=== PATIENT | male | born 1995 | race Caucasian/White ===

== ENCOUNTER 2017-02-04 13:47 | Emergency (ER) | payer MEDICAID ==
[2017-02-04 14:02] VITALS: TEMP 97.9
[2017-02-04] MEDS ORDERED: IBUPROFEN 800 MG TAB PO ONE (15:27)
--- NOTE | 2017-02-04 15:31 | UCPHY ---
H & P Time Seen by Provider: 02/04/17 14:59 Patient Type: New HPI/ROS: HPI Nasal injury. 21-year-old male by private vehicle. This patient has a history of a nasal fracture from 1 year ago. He never had a proper reduction and repair to this fracture and has a nasal deformity secondary to this. He reports that he was snowboarding yesterday. He reports that he fell and struck his nose hard on the ground. He complains of isolated nasal pain on the left side of the nasal bridge. He is concerned that he broke his nose again. He denies loss of consciousness. No neck pain. No loss of sensation or weakness in his extremities. No extremity pain. No other complaints. ROS: Constitutional: No fever, no chills. No weakness. Eyes: No discharge. No changes in vision. ENT: No sore throat. No nasal congestion or rhinorrhea. No nasal bleeding. As above. Musculoskeletal: No back pain. No neck pain. As above. Skin: No rashes. No lacerations or abrasions. Neurological: No headache. No focal weakness or altered sensation. Past medical history: As above. Social history: Here by himself. Physical Exam: General Appearance: Alert, no distress. This patient is responding to questions appropriately and in full sentences. This patient appears well- hydrated and well-nourished. Eyes: Pupils equal and round no pallor or injection. No lid edema, erythema or injection. ENT, Mouth: Mucous membranes are moist. The pharyngeal tissues are unremarkable. No edema or swelling. No asymmetry suggestive of abscess. No erythema or exudates. Nasal exam by speculum, no evidence of septal hematoma. Chronic deformity noted with nose shifted to the left. On palpation of his nasal bridge, chronic deformity appreciated but no crepitus or movement. No nasal bleeding. Neurological: Motor sensory function is grossly intact. Cranial nerves are normal. Gait is normal. Skin: Warm and dry, no rashes. Musculoskeletal: Neck is supple and nontender. Extremities are symmetrical. All joints range without pain or impingement. Psychiatric: No agitation. No depression. Database: EKG: Imaging: Procedures: Emergency department course: After my evaluation, the patient was given 600 mg of ibuprofen. The plan will be to have him follow up with ENT in 1-2 days for re-evaluation. I will give him a limited prescription for Vicodin as well as instructions on high-dose ibuprofen. He feels comfortable with this plan. Return to emergency department precautions were thoroughly reviewed with him. He understands his follow-up. All of his questions were answered. He was discharged in good condition. Differential Diagnosis: The differential diagnosis on this patient includes but is not limited to nasal contusion, nasal fracture. This represents a partial list of diagnoses considered. These considerations are based on history, physical exam, past history, reassessment and diagnostic testing. Smoking Status: Current every day smoker Constitutional: Initial Vital Signs Temperature (C) 36.6 C 02/04/17 13:58 Heart Rate 106 H 02/04/17 13:58 Respiratory Rate 18 02/04/17 13:58 Blood Pressure 155/89 H 02/04/17 13:58 O2 Sat (%) 97 02/04/17 13:58 O2 Delivery Mode Room Air Allergies/Adverse Reactions: No Known Allergies Allergy (Verified 02/04/17 13:58) Home Medications: Medication Instructions Recorded Hydrocodone/APAP 5/325 [[place] 1 - 2 tab PO Q4-6PRN PRN #10 tab 02/04/17 5/325 (*)] Departure - Departure Disposition: Home, Routine, Self-Care Clinical Impression: Injury of nose Condition: Good Instructions: Nasal Fracture (ED) Additional Instructions: Read and follow provided instructions. Follow-up with Dr. James Lockhart or 1 of his partners with [facility] in 1-2 days for re-evaluation. Call her office this afternoon for appointment time. Explained this is for an emergency department follow-up. Ibuprofen dosin mg every 6 hours with meals for the next 3 days only. [place]/Percocet dosin-2 every 4-[address] not drive on this medication. Return to the emergency department for worsening pain, bleeding, fever, facial swelling or other serious concerns. Referrals: ZOE BERNSTEIN,. [Primary Care Provider] - As per Instructions James Lockhart MD [Medical Doctor] - As per Instructions Prescriptions: Hydrocodone/APAP 5/325 [[place] 5/325 (*)] 1 - 2 tab PO Q4-6PRN PRN #10 tab PRN Reason: Pain, Moderate - PQRS PQRS Measurement: Not applicable.
[2017-02-04] MEDS ORDERED: IBUPROFEN 600 MG TAB PO ONE (15:39)
[2017-02-04 15:45] VITALS: BP 148/88; PULSE 101; RESP 16; O2SAT 96
== END 2017-02-04 15:45 | disposition home or self-care (01) ==
LOC: CED 13:47
DX: S09.92XA Unspecified injury of nose, initial encounter (principal); V00.311A Fall from snowboard, initial encounter; Y93.23 Activity, snow (alpine) (downhill) skiing, snowboarding, sledding, tobogganing and snow tubing
CPT/HCPCS: 99203-PO; G0463-PO

== ENCOUNTER 2017-08-27 16:39 | Emergency (ER) | payer MEDICAID ==
[2017-08-27 17:04] VITALS: TEMP 98.4
[2017-08-27] MEDS ORDERED: KETOROLAC 30 MG/1 ML SDV IVP ONE (17:07)
[2017-08-27] MEDS ORDERED: NS 1,000 ML IV ONE ×2 (17:07→20:36)
[2017-08-27 17:29] LABS: % IMMATURE GRANULYOCYTES 0.6 % (0.0-1.1); ABSOLUTE IMMATURE GRANULOCYTES 0.12 10^3/uL (0.00-0.10); ADD DIFF? NO; ADD MORPH? NO; ADD SCAN? NO; ATYPICAL LYMPHOCYTE FLAG 0 (0-99); FRAGMENT RBC FLAG 0 (0-99); HEMOGLOBIN 16.3 g/dL (13.7-17.5); LEFT SHIFT FLG 0 (0-99); LIPEMIA HEMOLYSIS FLAG 90 (0-99); MEAN CELL HEMOGLOBIN 30.3 pg (27.9-34.1); MEAN CELL HEMOGLOBIN CONCENTR. 34.7 g/dL (32.4-36.7); MEAN CELL VOLUME 87.4 fL (81.5-99.8); MEAN PLATELET VOLUME 11.1 fL (8.7-11.7); PLATELET CLUMPS FLAG 0 (0-99); PLATELET COUNT 310 10^3/uL (150-400); RED BLOOD CELL COUNT 5.38 10^6/uL (4.40-6.38); RED CELL DISTRIBUTION WIDTH 13.3 % (11.5-15.2)
--- NOTE | 2017-08-27 17:33 | CPEKG ---
Heart Rate: 109 RR Interval: 550 P-R Interval: 160 QRSD Interval: 80 QT Interval: 320 QTC Interval: 431 P Lincoln: 15 QRS Lincoln: 5 T Wave Lincoln: 10 EKG Severity - OTHERWISE NORMAL ECG - EKG Impression: SINUS TACHYCARDIA Electronically Signed By: Carlo Griffiths 27-Aug-2017 19:58:17
[2017-08-27 17:45] LABS: ANION GAP 15 mEq/L (8-16); CARBON DIOXIDE 20 mEq/l (22-31); CHLORIDE 107 mEq/L (97-110); CREATININE 0.8 mg/dL (0.7-1.3); GLOMERULAR FILTRATION RATE > 60; GLUCOSE 94 mg/dL (70-100); POTASSIUM 4.2 mEq/L (3.5-5.2); SODIUM 142 mEq/L (134-144)
--- NOTE | 2017-08-27 18:29 | EDPHY ---
H & P Time Seen by Provider: 08/27/17 16:59 HPI/ROS: This patient presents with syncope associated with foot injury. He explains that he had been off of Seroquel and trazodone for approximately 3 days during transition from correction. He was in correction for 6 months and disc at out on Thursday. His last dose of his psychiatric meds had been in correction Thursday night and then it took a few days to re-establish his medications and he took them last night- Thursday night-400 mg the. He then had 2 more in quick succession on the way to his bed and during 1 of them landed awkwardly on his foot or twisted his foot. He noticed the pain but felt sedated from the medications and slept through the night. He went to court today using a cane for ambulation as he did not want to miss his court date, and finally came in this afternoon for evaluation of his foot pain. He also reports dark urine recently and very slight discomfort with urination. ROS: Constitutional: No fevers or chills. HEENT: No URI symptoms except for mild coryza. No sore throat or ear pain. Neuro: No headache. He does think that he struck his occiput on 1 of the falls but only has localized pain there without a generalized headache. He denies any confusion, numbness tingling weakness or visual changes. Pulmonary: No coughing. No shortness of breath. No pleuritic pain Cardiovascular: I drink a lot of fluid this morning but admits that the previous 24 hours he binged on soda-caffeinated beverages having been unable to drink this while in correction and thinks that this cause dehydration contributed to the syncope. GI: No abdominal pain. No nausea vomiting diarrhea. : As per HPI. No testicle pain or swelling. No urethral discharge. Integumentary: No skin rash. No pallor. 10 point review of symptoms otherwise negative Social History: He denies any unprotected sex recently. Patient denied ever using any IV drugs. No other drug use or alcohol use at this time he is living in a nursing home house having recently got out of correction as per HPI. Smoking Status: Current every day smoker Physical Exam: Vital signs are notable for tachycardia to 119. O2 sat 93% room air, hypertensive 164/92 General Appearance: Alert, no distress. Eyes: Pupils equal and round no pallor or injection. ENT, Mouth: Mucous membranes moist. Mild occipital tenderness. No hematoma. Neck: Nontender full range of motion without pain Respiratory: There are no retractions, lungs are clear to auscultation. Cardiovascular: Tachycardic with no murmur gallop or rub. No peripheral edema. Gastrointestinal: Abdomen is soft and nontender, no masses, bowel sounds normal. Back: No CVA tenderness : No testicular tenderness Neurological: GCS 15. Cranial nerves 2-12 intact. Skin: Warm and dry, no rashes.. Extremities atraumatic normal except for right foot Right foot: Patient has dorsal swelling to the forefoot with associated tenderness over the region of the 3rd and 4th metatarsal proximally. Psychiatric: Mood and affect normal DIFFERENTIAL DIAGNOSIS: After history and physical exam differential diagnosis was considered for foot fracture, foot sprain, heart dysrhythmia, dehydration, UTI Constitutional: Initial Vital Signs Temperature (C) 36.9 C 08/27/17 17:01 Heart Rate 119 H 08/27/17 17:01 Respiratory Rate 20 08/27/17 17:01 Blood Pressure 162/94 H 08/27/17 17:01 O2 Sat (%) 93 08/27/17 17:01 O2 Delivery Mode Room Air Allergies/Adverse Reactions: No Known Allergies Allergy (Verified 08/27/17 17:26) Home Medications: Medication Instructions Recorded Doxycycline Hyclate [Vibramycin 100 mg PO BID #20 cap 08/27/17 100 MG (*)] Seroquel 08/27/17 traZODone 08/27/17 MDM/Departure - MDM Diagnostics: Foot x-ray: Proximal 3rd and 4th metatarsal fractures by my interpretation- minimally displaced. 12 lead EKG performed shortly after arrival at 5:31 p.m. indication syncope rule out dysrhythmia reveals sinus tachycardia 109 Intervals: Normal throughout [place]: Normal throughout ST segments: Normal throughout Overall assessment sinus tachycardia, otherwise normal Imaging Results: Imaging Impressions Foot X-Ray 08/27/17 17:08 Impression: Acute minimally displaced base of third and fourth metatarsal fractures. Chest X-Ray 08/27/17 17:51 Impression: 1. Poor inspiratory phase with minimal linear subsegmental atelectasis in the left lower lobe. 2. No definite pneumonia. Imaging: I viewed and interpreted images myself Medications Given: Discontinued Medications Doxycycline Hyclate (Doxycycline Hyclate) 100 mg PO EDNOW ONE PRN Reason: Protocol Stop: 08/27/17 19:01 Last Admin: 08/27/17 19:34 Dose: 100 mg Sodium Chloride (Ns) 1,000 mls @ 0 mls/hr IV EDNOW ONE; Wide Open PRN Reason: Protocol Stop: 08/27/17 17:08 Last Admin: 08/27/17 17:33 Dose: 1,000 mls Ketorolac Tromethamine (Toradol) 30 mg IVP EDNOW ONE Stop: 08/27/17 17:08 Last Admin: 08/27/17 17:34 Dose: 30 mg ED Course/Re-evaluation: IV normal saline bolus with resolution of tachycardia Doxycycline p. o. for evidence of mild UTI. On recheck vital signs patient is not orthostatic and feels improved. Review of labs reveals significant leukocytosis. Electrolytes unremarkable. Discussion: Patient with syncope this likely combination of his dehydration and restarting his psych meds at full dose. He had foot fracture- neurovascularly intact I spoke with Dr. Acevedo sec glazing machine operator regarding this she agrees the plan for walker boot, crutches and follow up with him. Although the patient has localized occipital tenderness, no evidence of significant head injury clinically. Performed a chest x-ray because of the extent of his leukocytosis and O2 sat of 93% room air. No abnormal findings in the chest x-ray by my read. Not think he has a lower respiratory infection or other complicating factors. I suspect leukocytosis is combination stress response from pain from foot fracture as well as the UTI. I suspect a prostatitis in this patient. Doubt pyelonephritis. - Depart Disposition: Home, Routine, Self-Care Clinical Impression: Dehydration Syncope Qualifiers: Syncope type: unspecified Qualified Code(s): R55 - Syncope and collapse Foot fracture, right Qualifiers: Encounter type: initial encounter Fracture type: closed Qualified Code(s): S92.901A - Unspecified fracture of right foot, initial encounter for closed fracture Urinary tract infection Qualifiers: Urinary tract infection type: site unspecified Hematuria presence: without hematuria Qualified Code(s): N39.0 - Urinary tract infection, site not specified Condition: Good Instructions: Dehydration (ED), Urinary Tract Infection in Men (ED), Foot Fracture in Adults (ED) Additional Instructions: Diagnoses: 1. Syncope 2. Foot fracture 3. UTI 4. Dehydration Plan: Drink plenty fluids Doxycycline antibiotic for 10 days as prescribed Walker boot whenever up and about. Touch down minimal weight-bearing only. Use crutches. Ice 20 minutes at a time 3 times a day to affected foot for the next few days Ibuprofen and Tylenol in addition for pain control as needed Call Dr. Rivera, post closing specialist arrange follow-up appointment for recheck sometime within the next 3-5 days. Return for any significant worsening despite the treatment plan Prescriptions: Doxycycline Hyclate [Vibramycin 100 MG (*)] 100 mg PO BID #20 cap Referrals: ZOE BERNSTEIN,. [Primary Care Provider] - As per Instructions
[2017-08-27 18:36] LABS: LEUKOCYTE ESTERASE,URINE NEGATIVE (NEGATIVE); NITRITE,URINE NEGATIVE (NEGATIVE); PH,URINE 5.5 (5.0-7.5)
[2017-08-27 18:37] LABS: COLOR DARK YELLOW
[2017-08-27 18:43] LABS: BACTERIA TRACE /hpf (NONE SEEN); HYALINE CASTS OCCASIONAL /lpf (0-1); MUCUS 3+ /lpf (NONE-1+); RBC,URINE NONE SEEN /hpf (0-3)
[2017-08-27] MEDS ORDERED: DOXYCYCLINE HYCLATE 100 MG CAP/TAB PO ONE (19:00)
[2017-08-27 20:12] VITALS: BP 142/92; PULSE 103; RESP 18; O2SAT 94
== END 2017-08-27 20:07 | disposition home or self-care (01) ==
LOC: CED 16:39
DX: S92.331A Displaced fracture of third metatarsal bone, right foot, initial encounter for closed fracture (principal); S92.341A Displaced fracture of fourth metatarsal bone, right foot, initial encounter for closed fracture; E86.0 Dehydration; R55 Syncope and collapse; N39.0 Urinary tract infection, site not specified; B96.89 Other specified bacterial agents as the cause of diseases classified elsewhere; F17.200 Nicotine dependence, unspecified, uncomplicated; E86.9 Volume depletion, unspecified; X50.9XXA Other and unspecified overexertion or strenuous movements or postures, initial encounter
CPT/HCPCS: 71020-PO; 73630-PO; 80048-PO; 81003-PO; 81015-PO; 85025-PO; 96374; J1885; L3260

== ENCOUNTER 2018-02-10 20:21 | Emergency (ER) | payer MEDICAID ==
[2018-02-10] MEDS ORDERED: traMADol 50 MG TAB PO ONE (20:53)
[2018-02-10] MEDS ORDERED: ACETAMINOPHEN 325 MG TAB PO ONE (20:53)
--- NOTE | 2018-02-10 21:12 | EDPHY ---
H & P Time Seen by Provider: 02/10/18 20:28 HPI/ROS: This patient presents with foot pain after stepping on a sheath was on the floor at night when he got up to go the bathroom and inverting his right foot. He complains of pain to the dorsal forefoot around the region of the 3rd to 4th metatarsal with a history of 3rd and 4th proximal metatarsal fracture 6 months ago. I have elevated the patient here for his initial metatarsal fractures in August. 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 He reports that he wore the boot for 2 months and symptoms improved prior to the injury last night. He denies hearing a pop from the incident. He did fall but denies any other injuries. He reports 8/10 pain to the forefoot that prevents him from putting full weight on it since the injury occurred. He has been using his crutches. He came in by private vehicle for evaluation of the symptoms. ROS: Neuro: No numbness or tingling Integumentary: No lacerations abrasions Musculoskeletal: No gross deformity or significant ecchymosis to the affected foot he does feel there is slight swelling. 5 point ROS is otherwise negative Past Medical/Surgical History: Psychiatric R. 3rd and 4th proximal metatarsal fractures 6 months prior to this visit. Smoking Status: Heavy smoker Physical Exam: Physical Exam Vital signs are normal. General: No acute distress Eyes: Pupils equal and react to light. Extraocular motions are intact. Lungs: No respiratory distress. Cardiac: Brisk capillary refill is intact throughout. Pulses are 2+ and symmetric in the affected extremity. Skin: No rash or pallor. Extremities: Atraumatic normal except for right foot Right foot: Patient has forefoot tenderness around the region of 4th metatarsal with perhaps mild swelling. Also, he has mild 5th metatarsal tenderness without swelling or ecchymosis. No significant ankle swelling or tenderness. Neuro: Alert and oriented with no sensorimotor deficits in the affected extremity. Initial differential diagnosis: Foot sprain, recurrent foot fracture, strain, contusion Constitutional: Initial Vital Signs Temperature (C) 37.1 C 02/10/18 20:31 Heart Rate 99 02/10/18 20:31 Respiratory Rate 6 L 02/10/18 20:31 Blood Pressure 152/97 H 02/10/18 20:31 O2 Sat (%) 94 03/28/18 20:31 O2 Delivery Mode Room Air Allergies/Adverse Reactions: No Known Allergies Allergy (Verified 02/10/18 20:30) Home Medications: Medication Instructions Recorded Seroquel 08/27/17 traMADol [Ultram 50 mg (*)] 50 - 100 mg PO Q4 PRN #15 tab 02/10/18 MDM/Departure - MDM Diagnostics: Two view foot x-rays: 4th proximal metatarsal fracture site is still evident ft appears to be incomplete healing question mild re-injury by my interpretation however this is read by a radiologist, Dr. Villareal as a healed fracture Imaging: I viewed and interpreted images myself Medications Given: Discontinued Medications Acetaminophen (Tylenol) 975 mg PO EDNOW ONE Stop: 02/10/18 20:54 Last Admin: 02/10/18 21:00 Dose: 975 mg Tramadol HCl (Ultram) 50 mg PO EDNOW ONE Stop: 02/10/18 20:54 Last Admin: 02/10/18 21:01 Dose: 50 mg ED Course/Re-evaluation: Discussion: Patient with right foot injury, history of fracture 3rd 4th metatarsals with pain and tenderness at the proximal 4th currently. Possibilities include a subtle recurrence of fracture or occult fracture, versus sprain. Counseled patient regarding this. He is treated with ibuprofen, Tylenol and tramadol the plan to wear his boot again in use crutches until follow up with Podiatry for further evaluation. He is sent home with his disc copy of the x-ray. He he understands need to return should he develop worsening despite treatment plan. - Depart Disposition: Home, Routine, Self-Care Clinical Impression: Right foot injury Qualifiers: Encounter type: initial encounter Qualified Code(s): S99.921A - Unspecified injury of right foot, initial encounter Condition: Good Instructions: Foot Sprain (ED) Additional Instructions: Diagnosis: Acute foot injury The radiologist feels that your bone is healing. The possibilities for today injuries include sprain versus occult fracture Plan: Ice Ibuprofen Tylenol for pain as needed Tramadol in addition if needed for pain that prevents sleep. No driving, alcohol or come tramadol Call Dr. Wolfe-academic records specialist arrange follow-up appointment. Bring your disc copy of the x-rays with you to that appointment. Wear year walker boot use crutches until you follow up with Dr. Wolfe. Stand Alone Forms: Work Limited Duty Prescriptions: traMADol [Ultram 50 mg (*)] 50 - 100 mg PO Q4 PRN #15 tab PRN Reason: breakthrough pain Referrals: DAY ENRIQUEZ [Other] - As per Instructions Marleen Wolfe DPM [Doctor of Podiatric Medicine] - As per Instructions
[2018-02-10 21:32] VITALS: BP 136/100
== END 2018-02-10 21:25 | disposition home or self-care (01) ==
LOC: CED 20:21
DX: S99.921A Unspecified injury of right foot, initial encounter (principal); F17.200 Nicotine dependence, unspecified, uncomplicated; X50.9XXA Other and unspecified overexertion or strenuous movements or postures, initial encounter
CPT/HCPCS: 73630-PO

== ENCOUNTER 2019-01-09 17:22 | Emergency (ER) | payer MEDICAID ==
[2019-01-09 17:33] VITALS: BP 138/88
[2019-01-09] MEDS ORDERED: HYDROCOD/APAP 5/325 PREPACK#6 BTL TAKEHOME ONE (17:44)
--- NOTE | 2019-01-09 17:44 | EDPHY ---
H & P Stated Complaint: L shoulder pain x 2 days, denies injury/trauma Time Seen by Provider: 01/09/19 17:29 HPI/ROS: Chief Complaint: Left shoulder pain HPI: 23-year-old male presenting with worsening left shoulder pain. Patient states he denies any injuries. He has been worsening pain in his deep shoulder for the last 2 days. Does not hurt at rest. It hurts to move it. States he sleeps with his arm behind his girlfriend's pillow immobilized for most of the night. 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 No numbness or weakness. No prior injuries. He has been taking ibuprofen with acetaminophen alternating with minimal relief. No pain in his elbow wrist or hand. No neck pain. No numbness or weakness. ROS: 10 systems were reviewed and were negative except those elements noted in the HPI. PMH: Denies Social History: No smoking, no alcohol, no recreational drug use Family History: non-contributory Physical Exam: General: Awake, alert, no acute distress Left Shoulder: No bony tenderness or deformity. Patient is able to externally rotate to 45. He is able to abduct to 45. No soft tissue swelling noted. No erythema. Not warm to touch. Sensation is intact in the radial, median, and ulnar nerve distribution. Neck: Nontender, full range of motion without pain Skin: No rash - Personal History Current Tetanus Diphtheria and Acellular Pertussis (TDAP): Yes Tetanus Vaccine Date: within 10 years - Medical/Surgical History Hx Asthma: No Hx Chronic Respiratory Disease: No Hx Diabetes: No Hx Cardiac Disease: No Hx Renal Disease: No Hx Cirrhosis: No Hx Alcoholism: No Hx HIV/AIDS: No Hx Splenectomy or Spleen Trauma: No Other PMH: Insomnia, fractured R foot 2017. surg-none - Social History Smoking Status: Heavy smoker Constitutional: Initial Vital Signs Temperature (C) 36.9 C 01/09/19 17:28 Heart Rate 82 01/09/19 17:28 Respiratory Rate 16 01/09/19 17:28 Blood Pressure 138/88 H 01/09/19 17:28 O2 Sat (%) 96 01/09/19 17:28 O2 Delivery Mode Room Air Allergies/Adverse Reactions: No Known Allergies Allergy (Verified 01/09/19 17:28) Home Medications: Medication Instructions Recorded NK [No Known Home Meds] 06/23/18 Medical Decision Making ED Course/Re-evaluation: 23-year-old male with atraumatic left shoulder pain. No reproducible tenderness or deformity. Symptoms consistent likely with a deep rotator cuff injury. She I do not feel an x-ray would be useful at this time. Will send him home with a [email or web address] prepack. Referral for orthopedic follow-up for possible MRI. Departure - Departure Disposition: Home, Routine, Self-Care Clinical Impression: Shoulder pain Condition: Good Instructions: Shoulder Pain (ED), Hydrocodone/Acetaminophen (By mouth) Additional Instructions: Follow up with orthopedic surgeon in 2-3 days for further evaluation. Referrals: Kael Jones MD [Medical Doctor] - As per Instructions
== END 2019-01-09 17:52 | disposition home or self-care (01) ==
LOC: CED 17:22
DX: M25.512 Pain in left shoulder (principal)
CPT/HCPCS: 99283-ER